=== PATIENT | female | born 2000 | race Hispanic/Latino ===

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

== ENCOUNTER 2022-04-01 17:28 | Emergency (ER) | payer OTHER ==
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
[2022-04-01 18:21] LABS: Absolute Lymphocytes (CBC) 1.3 K/uL (0.7-4.9); Hematocrit 33.4 % (36.0-45.0); Lymphocytes % 18.1 % (15.3-44.8); MCV 70.8 fL (80-100); MPV 6.7 fL (7.6-11.3); RBC Red Blood Cell Count 4.71 M/uL (3.86-4.86)
[2022-04-01 18:44] LABS: BUN Blood Urea Nitrogen 6 mg/dL (7-18); Bicarbonate 27 mmol/L (21-32); Glomerular Filtration Rate 127 ml/min (=/>90); Glucose Level 113 mg/dL (74-106); Magnesium 2.1 mg/dL (1.8-2.4); Potassium 3.8 mmol/L (3.5-5.1); Sodium Level 139 mmol/L (136-145); Thyroid Stimulating Hormone 0.808 uIU/mL (0.360-3.740)
[2022-04-01 18:59] LABS: Troponin High Sensitivity < 3.0 pg/mL (<58.9)
--- NOTE | 2022-04-01 19:27 | EDPHYS ---
Physician Documentation [facility] Name: Kathia Tenorio Age: 21 yrs Sex: Female : 2000 Arrival Date: 04/01/2022 Time: 17:29 Bed 7 Private MD: ED Physician Jeferson Lee HPI: 04/01 18:31 This 21 yrs old Female presents to ER via Ambulatory with complaints of jl9 Palpitations. Patient just started taking phentermine for weight loss. 37.5mg. . 18:31 Onset: The symptoms/episode began/occurred today. Associated signs and symptoms: The jl9 patient has no apparent associated signs or symptoms. The patient has not experienced similar symptoms in the past. 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 - Social history:: Smoking status: Patient denies any tobacco usage or history of. ROS: 18:32 Constitutional: Negative for fever, chills, and weight loss. jl9 18:32 Eyes: Negative for injury, pain, redness, and discharge, ENT: Negative for injury, pain, and discharge, Neck: Negative for injury, pain, and swelling. 18:32 Respiratory: Negative for shortness of breath, cough, wheezing, and pleuritic chest pain, Abdomen/GI: Negative for abdominal pain, nausea, vomiting, diarrhea, and constipation, Back: Negative for injury and pain, : Negative for injury, bleeding, discharge, and swelling, MS/Extremity: Negative for injury and deformity, Skin: Negative for injury, rash, and discoloration, Neuro: Negative for headache, weakness, numbness, tingling, and seizure, Psych: Negative for depression, anxiety, suicide ideation, homicidal ideation, and hallucinations, Allergy/Immunology: Negative for hives, rash, and allergies, Endocrine: Negative for neck swelling, polydipsia, polyuria, polyphagia, and marked weight changes, Hematologic/Lymphatic: Negative for swollen nodes, abnormal bleeding, and unusual bruising. 18:32 Cardiovascular: Positive for palpitations. Exam: 18:33 Constitutional: This is a well developed, well nourished patient who is awake, alert, jl9 and in no acute distress. Head/Face: Normocephalic, atraumatic. Eyes: Pupils equal round and reactive to light, extra-ocular motions intact. Lids and lashes normal. Conjunctiva and sclera are non-icteric and not injected. Cornea within normal limits. Periorbital areas with no swelling, redness, or edema. ENT: Mucous membranes moist. Neck: Trachea midline, no thyromegaly or masses palpated, and no cervical lymphadenopathy. Supple, full range of motion without nuchal rigidity, or vertebral point tenderness. No Meningismus. Chest/axilla: Normal chest wall appearance and motion. Nontender with no deformity. No lesions are appreciated. Cardiovascular: Regular rate and rhythm with a normal S1 and S2. No gallops, murmurs, or rubs. Normal PMI, no JVD. No pulse deficits. Respiratory: Lungs have equal breath sounds bilaterally, clear to auscultation and percussion. No rales, rhonchi or wheezes noted. No increased work of breathing, no retractions or nasal flaring. Abdomen/GI: Soft, non-tender, with normal bowel sounds. No distension or tympany. No guarding or rebound. No evidence of tenderness throughout. Back: No spinal tenderness. No costovertebral tenderness. Full range of motion. Skin: Warm, dry with normal turgor. Normal color with no rashes, no lesions, and no evidence of cellulitis. MS/ Extremity: Pulses equal, no cyanosis. Neurovascular intact. Full, normal range of motion. Neuro: Awake and alert, GCS 15, oriented to person, place, time, and situation. Cranial nerves II-XII grossly intact. Motor strength 5/5 in all extremities. Sensory grossly intact. Cerebellar exam normal. Normal gait. Psych: Awake, alert, with orientation to person, place and time. Behavior, mood, and affect are within normal limits. Vital Signs: 17:52 BP 132 / 87; Pulse 114; Resp 16; Temp 98.1; Pulse Ox 100% on R/A; Weight 55.34 kg; iw Height 4 ft. 11 in. (149.86 cm); 19:05 BP 104 / 70; Pulse 95; Resp 16; Pulse Ox 100% on R/A; hb 19:43 BP 104 / 70; Pulse 90; Resp 18; Pulse Ox 100% on R/A; ll3 17:52 Body Mass Index 24.64 (55.34 kg, 149.86 cm) iw MDM: 17:56 Patient medically screened. 18:33 Data reviewed: vital signs, nurses notes, lab test result(s), EKG. Test interpretation: jl9 by ED physician or midlevel provider: ECG, ST 103 bpm. 19:26 Counseling: I had a detailed discussion with the patient and/or guardian regarding: the [facility] historical points, exam findings, and any diagnostic results supporting the discharge/admit diagnosis, lab results, the need for outpatient follow up, to return to the emergency department if symptoms worsen or persist or if there are any questions or concerns that arise at home. 04/01 17:55 Order name: Basic Metabolic Panel; Complete Time: 19:02 04/01 17:55 Order name: CBC with Diff; Complete Time: 18:36 04/01 17:55 Order name: Magnesium; Complete Time: 19:02 04/01 17:55 Order name: Troponin HS; Complete Time: 19:02 04/01 17:55 Order name: XRAY Chest (1 view) 04/01 17:55 Order name: TSH; Complete Time: 19:02 04/01 17:55 Order name: EKG; Complete Time: 17:57 04/01 17:55 Order name: Cardiac monitoring; Complete Time: 18:14 04/01 17:55 Order name: EKG - Nurse/Tech; Complete Time: 18:14 04/01 17:55 Order name: IV Saline Lock; Complete Time: 18:14 04/01 17:55 Order name: Labs collected and sent; Complete Time: 18:14 Administered Medications: No medications were administered Disposition Summary: 04/01/22 19:27 Discharge Ordered Location: Home jl9 Condition: Stable jl9 Diagnosis - Palpitations jl9 Followup: jl9 - With: Private Physician - When: 1 - 2 days - Reason: Recheck today's complaints, Continuance of care, Re-evaluation by your physician Discharge Instructions: - Discharge Summary Sheet jl9 - Palpitations, [id number] jl9 Forms: - Medication Reconciliation Form jl9 - Thank You Letter jl9 - Antibiotic Education jl9 - Prescription Opioid Use jl9 Signatures: Dispatcher [employer] Monalisa Brown, WICHO RN Fabio Yang jl9 Corrections: (The following items were deleted from the chart) 17:55 17:54 Allergies: No Known Allergies; lucien mcgraw
--- NOTE | 2022-04-01 19:27 | ER ---
Nurse's Notes [facility] Name: Kathia Tenorio Age: 21 yrs Sex: Female : 2000 Arrival Date: 04/01/2022 Time: 17:29 Bed 7 Private MD: Diagnosis: Palpitations Presentation: 04/01 17:52 Chief complaint: Patient states: my heart rate has been fast and my BP was high, I iw thought it was anxiety but I thought I was going to faint , now my heart is just racing, it happened night also , I took a phentermine pill today , I usually take them and I never have problem, I stopped taking them on when it happened and then i took one today and it happened again. Coronavirus screen: At this time, the client does not indicate any symptoms associated with coronavirus-19. Ebola Screen: Patient negative for fever greater than or equal to 101.5 degrees Fahrenheit, and additional compatible Ebola Virus Disease symptoms Patient denies exposure to infectious person. Patient denies travel to an Ebola-affected area in the 21 days before illness onset. No symptoms or risks identified at this time. Initial Sepsis Screen: Does the patient meet any 2 criteria? No. Patient's initial sepsis screen is negative. Does the patient have a suspected source of infection? No. Patient's initial sepsis screen is negative. Risk Assessment: Do you want to hurt yourself or someone else? Patient reports no desire to harm self or others. Onset of symptoms was April 01, 2022. 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 - Social history:: Smoking status: Patient denies any tobacco usage or history of. Screenin:14 Abuse screen: Denies threats or abuse. Denies injuries from another. Nutritional hb screening: No deficits noted. Tuberculosis screening: No symptoms or risk factors identified. Fall Risk None identified. Assessment: 18:15 General: Appears in no apparent distress. Behavior is calm, cooperative. Pain: Denies hb pain. Neuro: Level of Consciousness is awake, alert, obeys commands, Oriented to person, place, time, situation. Cardiovascular: Reports palpitations, Patient's skin is warm and dry. Respiratory: Respiratory effort is even, unlabored, Respiratory pattern is regular, symmetrical. GI: No signs and/or symptoms were reported involving the gastrointestinal system. : No signs and/or symptoms were reported regarding the genitourinary system. EENT: No signs and/or symptoms were reported regarding the EENT system. Derm: Skin is pink, warm \T\ dry. Musculoskeletal: No signs and/or symptoms reported regarding the musculoskeletal system. 19:43 Reassessment: No changes from previously documented assessment. Patient and/or family ll3 updated on plan of care and expected duration. Pain level reassessed. Patient is alert, oriented x 3, equal unlabored respirations, skin warm/dry/pink. Vital Signs: 17:52 BP 132 / 87; Pulse 114; Resp 16; Temp 98.1; Pulse Ox 100% on R/A; Weight 55.34 kg; iw Height 4 ft. 11 in. (149.86 cm); 19:05 BP 104 / 70; Pulse 95; Resp 16; Pulse Ox 100% on R/A; hb 19:43 BP 104 / 70; Pulse 90; Resp 18; Pulse Ox 100% on R/A; ll3 17:52 Body Mass Index 24.64 (55.34 kg, 149.86 cm) iw ED Course: 17:29 Patient arrived in ED. as 17:54 Triage completed. iw 17:55 Fabio Hutchins is PHCP. jl9 17:55 Jeferson Lee MD is Attending Physician. jl9 17:55 Arm band placed on. iw 18:13 Inserted saline lock: 20 gauge in right antecubital area, using aseptic technique. zm Blood collected. 18:14 Patient has correct armband on for positive identification. Client placed on continuous hb cardiac and pulse oximetry monitoring. NIBP monitoring applied. 18:14 Basic Metabolic Panel Sent. zm 18:14 CBC with Diff Sent. zm 18:14 Magnesium Sent. zm 18:14 Troponin HS Sent. zm 18:14 TSH Sent. zm 18:14 Patient maintains SpO2 saturation greater than 95% on room air. hb 19:04 Karon Cobb, RN is Primary Nurse. hb 19:35 XRAY Chest (1 view) In Process Unspecified. EDMS 19:43 No provider procedures requiring assistance completed. IV discontinued, intact, ll3 bleeding controlled, No redness/swelling at site. Pressure dressing applied. Administered Medications: No medications were administered Medication: 18:15 VIS not applicable for this client. hb Outcome: 19:27 Discharge ordered by MD. weaver 19:43 Discharged to home ambulatory. ll3 19:43 Condition: stable 19:43 Discharge instructions given to patient, family, Instructed on discharge instructions, follow up and referral plans. Demonstrated understanding of instructions, follow-up care. 19:44 Patient left the ED. ll3 Signatures: Dispatcher [employer] EDMS Naya Meyer Irene RN WICHO Karon Cobb, RN RN Lalo Fontanez RN RN 3 Maricruz Meyer John jl9 Corrections: (The following items were deleted from the chart) 17:55 17:54 Allergies: No Known Allergies; [facility]
--- NOTE | 2022-04-01 19:47 | RAD REPORT ---
EXAM DESCRIPTION: Mary Single View04/01/2022 7:34 pm CLINICAL HISTORY: Hypertension COMPARISON: none FINDINGS: The lungs appear clear of acute infiltrate. The heart is normal size IMPRESSION: No acute abnormalities displayed
[2022-04-01 20:41] VITALS: TEMP 98.1; O2SAT 100
[2022-04-01 20:46] VITALS: BP 104/70
--- NOTE | 2022-04-02 13:45 | EKG ---
Test Date: 2022-04-01 Test Time: 18:06:11 Private Duty Lpn: HB MEASUREMENT RESULTS: Intervals: Rate: 103 ME: 134 QRSD: 78 QT: 332 QTc: 434 Doran: P: 72 ME: 134 QRS: 53 T: 26 INTERPRETIVE STATEMENTS: Sinus tachycardia Otherwise normal ECG No previous ECG available for comparison Electronically Signed On 04-02-22 13:43:38 CDT by Mark Lucia
== END 2022-04-01 19:44 | disposition home or self-care (01) ==
LOC: ER 17:28
DX: R00.2 Palpitations (principal); Z88.5 Allergy status to narcotic agent
CPT/HCPCS: 36415; 71045; 80048; 83735; 84443; 84484; 85025; 93005; 99284

== ENCOUNTER 2024-09-02 02:36 | Emergency (ER) | payer OTHER, SELFPAY ==
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
[2024-09-02 03:37] LABS: Absolute Basophils 0.1 K/uL (0-0.5); Absolute Lymphocytes (CBC) 1.1 K/uL (0.7-4.9); Absolute Monocytes 0.3 K/uL (0.1-1.3); Absolute Neutrophil 4.6 K/uL (1.8-8.0); Basophils % 1.3 % (0-1.3); Eosinophils % 0.5 % (0-4.4); Hematocrit 45.8 % (36.0-45.0); Lymphocytes % 17.3 % (15.3-44.8); MCH 32.8 pg (27.0-35.0); MCHC 34.9 g/dL (32.0-36.0); MCV 94.1 fL (80-100); MPV 6.9 fL (7.6-11.3); Monocytes % 5.1 % (3.3-12.3); Neutrophils % 75.8 % (41.7-73.7); Nucleated Red Blood Cells % 0.1 % (0-0); Platelets 371 thou/uL (152-406); RBC Red Blood Cell Count 4.87 M/uL (3.86-4.86); Red Cell Distribution Width 13.4 % (12.1-15.2)
[2024-09-02] MEDS ORDERED: ONDANSETRON 4 MG/2 ML VIAL ONE (03:37)
[2024-09-02] MEDS ORDERED: KETOROLAC 30 MG/ML INJ ONE (03:37)
[2024-09-02] MEDS ORDERED: METOCLOPRAMIDE 10 MG/2mL INJ ONE (03:37)
[2024-09-02] MEDS ORDERED: FAMOTIDINE 20 MG/2 ML VIAL IV ONE (03:38)
[2024-09-02] MEDS ORDERED: FENTANYL CITR 100 MCG/2 ML ONE (03:38)
[2024-09-02] MEDS ORDERED: NA CHLORIDE 0.9% 1,000 ML ONE (03:39)
[2024-09-02 03:47] LABS: AST/SGOT 13 U/L (15-37); Albumin/Globulin Ratio 1.1 (1.1-1.8); Alkaline Phosphatase 52 U/L (45-117); Anion Gap 8.8 mEq/L (5.0-15.0); BUN Blood Urea Nitrogen 6 mg/dL (7-18); Bicarbonate 26 mEq/L (21-32); Bilirubin Total 0.5 mg/dL (0.2-1.0); Globulin 3.7 g/dL (2.3-3.5); Glomerular Filtration Rate 128 ml/min (=/>90); Glucose Level 110 mg/dL (74-106); Lipase 21 U/L (13-75); Potassium 3.8 mEq/L (3.5-5.1); Protein, Total 7.7 g/dL (6.4-8.2); Sodium Level 135 mEq/L (136-145); Specific Gravity 1.023 (1.005-1.030); Urine Bacteria None Seen /HPF (<20); Urine Bilirubin NEGATIVE (Negative); Urine Blood 1+ (Negative); Urine Clarity Turbid (Clear); Urine Color Yellow (Yellow); Urine Culture Reflex Order NOT NEEDED; Urine Glucose NEGATIVE (Negative); Urine Ketones 1+ (Negative); Urine Microscopic Reflex YN ORDER UMIC; Urine Mucus Slight /HPF (None Seen); Urine Nitrite NEGATIVE (Negative); Urine Protein TRACE (Negative); Urine Urobilinogen 1+ (Normal); Urine WBC <5 /HPF (<5); Urine pH 7.5 (5.0-7.0)
[2024-09-02 03:53] LABS: ALT/SGPT < 14 U/L (13-56)
--- NOTE | 2024-09-02 04:31 | RAD REPORT ---
EXAM DESCRIPTION: Renal Ultrasound-Complete CLINICAL HISTORY: back pain COMPARISON: None. TECHNIQUE: Real-time sonographic images of the retroperitoneum were obtained using a curved multihert z transducer. FINDINGS: The visualized portions of the aorta and IVC are unremarkable. The right kidney measures 9.9 cm in length. The left kidney measures 9.6 cm in length. No solid renal mass, shadowing renal calculi, or hydronephrosis. The urinary bladder is well-distended. IMPRESSION: No acute sonographic abnormality identified in the kidneys. Electronically signed by: Valerio Simms DO 09/02/2024 04:26 AM [facility] 4ZDM Due to temporary technical issues with the PACS/[employer] reporting system, reports are being signed by the in-house radiologist without review as a courtesy to ensure prompt reporting the interpreting radiologist is fully responsible for the content of the report. Transcribed Date/Time: 09/02/2024 4:31 AM
--- NOTE | 2024-09-02 04:34 | ER ---
Nurse's Notes [facility] Name: Kathia Tenorio Age: 24 yrs Sex: Female : 2000 Arrival Date: 09/02/2024 Time: 02:36 Bed 6 Private MD: Diagnosis: Acute Upper Abdominal pain , Epigastric pain, Bilateral upper Back pain Presentation: 09/02 02:50 Chief complaint: Patient states: Low back pain that radiates to right side. Coronavirus vc1 screen: Client denies travel out of the [place] in the last 14 days. At this time, the client does not indicate any symptoms associated with coronavirus-19. Ebola Screen: Patient negative for fever greater than or equal to 101.5 degrees Fahrenheit, and additional compatible Ebola Virus Disease symptoms Patient denies exposure to infectious person. Patient denies travel to an Ebola-affected area in the 21 days before illness onset. No symptoms or risks identified at this time. Initial Sepsis Screen: Does the patient meet any 2 criteria? No. Patient's initial sepsis screen is negative. Does the patient have a suspected source of infection? No. Patient's initial sepsis screen is negative. Risk Assessment: Do you want to hurt yourself or someone else? Patient reports no desire to harm self or others. Onset of symptoms was September 01, 2024 at 12:30. Care prior to arrival: Medication(s) given: Motrin, motrin at 1230 and 1700. Activity prior to arrival: None. Mechanism of Injury: No Mechanism of Injury. Transition of care: patient was not received from another setting of care. 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 Flu vaccine is not up to date. - Infectious Disease History:: Denies. - Social history:: Smoking status: Reported history of juuling and/or vaping. - Family history:: not pertinent. Screenin:50 [facility] ED Fall Risk Assessment (Adult) History of falling in the last 3 months, dd2 including since admission No falls in past 3 months (0 pts) Confusion or Disorientation No (0 pts) Intoxicated or Sedated No (0 pts) Impaired Gait No (0 pts) Mobility Assist Device Used No (0 pt) Altered Elimination No (0 pt) Score/Fall Risk Level 0 - 2 = Low Risk Oriented to surroundings, Maintained a safe environment, Educated pt \T\ family on fall prevention, incl call for assistance when getting out of bed, Assessed \T\ reinforced patient's understanding of fall precautions, Hourly rounding (assess needs \T\ fall precautionary measures) done. Abuse screen: Denies threats or abuse. Nutritional screening: No deficits noted. Tuberculosis screening: No symptoms or risk factors identified. 02:53 [facility] ED Fall Risk Assessment (Adult) History of falling in the last 3 months, vc1 including since admission No falls in past 3 months (0 pts) Confusion or Disorientation No (0 pts) Intoxicated or Sedated No (0 pts) Impaired Gait No (0 pts) Mobility Assist Device Used No (0 pt) Altered Elimination No (0 pt) Score/Fall Risk Level 0 - 2 = Low Risk Oriented to surroundings, Maintained a safe environment, Educated pt \T\ family on fall prevention, incl call for assistance when getting out of bed. Abuse screen: Denies threats or abuse. Nutritional screening: No deficits noted. Tuberculosis screening: No symptoms or risk factors identified. Assessment: 02:50 General: Appears in no apparent distress. uncomfortable, Behavior is calm, cooperative, dd2 appropriate for age. Pain: Complains of pain in right low back and posterior aspect of right lateral abdomen Pain does not radiate. Pain currently is 5 out of 10 on a pain scale. Neuro: Johnson Agitation-Sedation Scale (RASS): 0 - Alert and Calm Level of Consciousness is awake, alert, obeys commands, Oriented to person, place, time, situation, Appropriate for age. Cardiovascular: Patient's skin is warm and dry. Respiratory: No deficits noted. Airway is patent Respiratory effort is even, unlabored, Respiratory pattern is regular, symmetrical, Breath sounds are clear bilaterally. GI: Bowel sounds present X 4 quads. Abd is soft and non tender X 4 quads. : Reports pain in right flank(s), in lower back. :. EENT: No deficits noted. No signs and/or symptoms were reported regarding the EENT system. Derm: No deficits noted. No signs and/or symptoms reported regarding the dermatologic system. Musculoskeletal: Circulation, motion, and sensation intact. Range of motion: intact in all extremities. Vital Signs: 02:50 BP 132 / 95; Pulse 76; Resp 14; Temp 97.9; Pulse Ox 100% ; Weight 54.43 kg; Height 4 vc1 ft. 11 in. ; Pain 5/10; 04:48 BP 93 / 77; Pulse 72; Resp 16; Pulse Ox 100% on R/A; dd2 02:50 Body Mass Index 24.24 (54.43 kg, 149.86 cm) vc1 02:50 Pain Scale: Adult vc1 [place] Coma Score: 02:50 Eye Response: spontaneous(4). Motor Response: obeys commands(6). Verbal Response: dd2 oriented(5). Total: 15. 21:04 Eye Response: spontaneous(4). Motor Response: obeys commands(6). Verbal Response: sp4 oriented(5). Total: 15. ED Course: 02:41 Patient arrived in ED. gm2 02:50 CHRISTIE PIERRE, RN is Primary Nurse. dd2 02:50 Patient has correct armband on for positive identification. Bed in low position. Call dd2 light in reach. Side rails up X 1. Client placed on continuous cardiac and pulse oximetry monitoring. NIBP monitoring applied. Door closed. Noise minimized. Pillow given. Verbal reassurance given. 02:50 No provider procedures requiring assistance completed. Patient maintains SpO2 dd2 saturation greater than 95% on room air. 02:52 Triage completed. vc1 02:54 Eduardo Resendez MD is Attending Physician. sp4 02:54 Arm band placed on right wrist. vc1 03:15 Initial lab(s) drawn, by me, sent to lab. Urine collected: clean catch specimen, dd2 cloudy. Inserted saline lock: 20 gauge in right antecubital area, using aseptic technique. Blood collected. Flushed with 10 mL NS. 03:17 Urinalysis w/ reflexes Sent. dd2 03:17 Test, Urine Sent. dd2 03:17 Lipase Sent. dd2 03:17 CMP Sent. dd2 03:17 CBC with Diff Sent. dd2 03:38 US Abdomen Limited In Process Unspecified. EDMS 03:38 US Pelvis Complete In Process Unspecified. EDMS 03:38 Renal Ultrasound-Complete In Process Unspecified. EDMS 04:09 Abdomen Acute Series XRAY In Process Unspecified. EDMS 04:47 Provided Education on: d/c education. dd2 04:47 IV discontinued, intact, bleeding controlled, No redness/swelling at site. Pressure dd2 dressing applied. Administered Medications: 03:58 Drug: metoCLOPramide IVP 10 mg IVP once; over 1 to 2 minutes Route: IVP; Site: right ay antecubital; 04:17 Follow up: Response: No adverse reaction ay 03:59 Drug: Famotidine IVP 20 mg IVP once; dilute with 10 mL 0.9% NaCl; give over 2 minutes ay Route: IVP; Site: right antecubital; 04:18 Follow up: Response: No adverse reaction ay 03:59 Drug: Ondansetron IVP 4 mg IVP once; over 2 minutes Route: IVP; Site: right antecubital;ay 04:19 Follow up: Response: No adverse reaction ay 03:59 Drug: NS 0.9% IV 1000 ml IV at 1 bolus Per protocol; to be given as a bolus over 60 ay minutes Route: IV; Rate: 1 bolus; Site: right antecubital; 04:19 Follow up: Response: No adverse reaction ay 04:47 Follow up: IV Status: Completed infusion; IV Intake: 1000ml dd2 03:59 Drug: fentaNYL (PF) IVP 100 mcg IVP once Route: IVP; Site: right antecubital; ay 04:18 Follow up: Response: No adverse reaction ay 04:00 Drug: TORadol - Ketorolac IVP 30 mg IVP once Route: IVP; Site: right antecubital; ay 04:19 Follow up: Response: No adverse reaction ay Medication: 02:50 VIS not applicable for this client. dd2 Intake: 04:47 IV: 1000ml; Total: 1000ml. dd2 Outcome: 04:34 Discharge ordered by . sp4 04:47 Discharged to home ambulatory, dd2 04:47 Condition: improved 04:47 Discharge instructions given to patient, Instructed on discharge instructions, follow up and referral plans. medication usage, Demonstrated understanding of instructions, follow-up care, medications, Prescriptions given X 3, 04:49 Patient left the ED. dd2 Signatures: Dispatcher [employer] EDMS Blank Hansen RN RN vc1 Eduardo Resendez MD MD sp4 Sunitha Bapitste gm2 CHRISTIE PIERRE RN RN dd2 Elisabet Neri RN RN ay
--- NOTE | 2024-09-02 04:34 | EDPHYS ---
Physician Documentation [facility] Name: Kathia Tenorio Age: 24 yrs Sex: Female : 2000 Arrival Date: 09/02/2024 Time: 02:36 Bed 6 Private MD: ED Physician Eduardo Resendez HPI: 09/02 02:54 This 24 yrs old Female presents to ER via Ambulatory with complaints of sp4 Abdominal Pain, Back Pain. 21:04 24-year-old female presents with complaint of abdominal and back pain mostly epigastric sp4 upper abdominal location.. Patient reported associated nausea.. 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 Flu vaccine is not up to date. - Infectious Disease History:: Denies. - Social history:: Smoking status: Reported history of juuling and/or vaping. - Family history:: not pertinent. ROS: 21:04 Constitutional: Negative for fever, chills, and weight loss, positive for abdominal sp4 pain back pain and nausea. 21:04 All other systems are negative, Exam: 21:04 Constitutional: This is a well developed, well nourished patient who is awake, alert, sp4 and in no acute distress. Head/Face: Normocephalic, atraumatic. Eyes: Pupils equal round and reactive to light, extra-ocular motions intact. Lids and lashes normal. Conjunctiva and sclera are not injected. Cornea within normal limits. Periorbital areas with no swelling, redness, or edema. ENT: Nares patent. No nasal discharge, no septal abnormalities noted. Tympanic membranes are normal and external auditory canals are clear. Oropharynx with no redness, swelling, or masses, exudates, or evidence of obstruction, uvula midline. Mucous membranes moist. Neck: Trachea midline, no thyromegaly or masses palpated, and no cervical lymphadenopathy. Supple, full range of motion without nuchal rigidity, or vertebral point tenderness. Chest/axilla: Normal chest wall appearance and motion. Nontender with no deformity. No lesions are appreciated. Cardiovascular: Regular rate and rhythm with a normal S1 and S2. No gallops, murmurs, or rubs. Normal PMI, no JVD. No pulse deficits. Respiratory: Lungs have equal breath sounds bilaterally, clear to auscultation and percussion. No rales, rhonchi or wheezes noted. No increased work of breathing, no retractions or nasal flaring. Abdomen/GI: Soft, with normal bowel sounds. No distension or tympany. No guarding , negative rebound, positive upper abdominal tenderness bilaterally. Back: No spinal tenderness. No costovertebral tenderness. Skin: Warm, dry with normal turgor. Normal color with no rashes, no lesions, and no evidence of cellulitis. MS/ Extremity: Pulses equal, no cyanosis. Neurovascular intact. Full, normal range of motion. Neuro: Awake and alert, GCS 15, oriented to person, place, time, and situation. Cranial nerves II-XII grossly intact. Motor strength 5/5 in all extremities. Sensory grossly intact. Psych: Awake, alert, with orientation to person, place and time. Behavior, mood, and affect are within normal limits Vital Signs: 02:50 BP 132 / 95; Pulse 76; Resp 14; Temp 97.9; Pulse Ox 100% ; Weight 54.43 kg; Height 4 vc1 ft. 11 in. ; Pain 5/10; 04:48 BP 93 / 77; Pulse 72; Resp 16; Pulse Ox 100% on R/A; dd2 02:50 Body Mass Index 24.24 (54.43 kg, 149.86 cm) vc1 02:50 Pain Scale: Adult vc1 [place] Coma Score: 02:50 Eye Response: spontaneous(4). Motor Response: obeys commands(6). Verbal Response: dd2 oriented(5). Total: 15. 21:04 Eye Response: spontaneous(4). Motor Response: obeys commands(6). Verbal Response: sp4 oriented(5). Total: 15. MDM: 03:02 Medical Screening Exam initiated sp4 04:32 ED course: EXAM DESCRIPTION: Renal Ultrasound-Complete CLINICAL HISTORY: back pain sp4 COMPARISON: None. TECHNIQUE: Real-time sonographic images of the retroperitoneum were obtained using a curved multihertz transducer. FINDINGS: The visualized portions of the aorta and IVC are unremarkable. The right kidney measures 9.9 cm in length. The left kidney measures 9.6 cm in length. No solid renal mass, shadowing renal calculi, or hydronephrosis. The urinary bladder is well-distended. IMPRESSION: No acute sonographic abnormality identified in the kidneys. Electronically signed by: Valerio Simms DO 09/02/2024 04:26 AM. ED course: EXAM: XR Abdomen, 2 Views and XR Chest, 1 View CLINICAL HISTORY: The patient is 24 years old and is Female; Abdomen pain. TECHNIQUE: Three views total including of the chest, frontal view of the abdomen/pelvis and upright or decubitus view of the abdomen. COMPARISON: US Abdomen limited 09/02/2024. FINDINGS: Lungs: No pulmonary vascular congestion or consolidation. Pleural space: Unremarkable. No pneumothorax. Heart: Unremarkable. No cardiomegaly. Mediastinum: Unremarkable. Intraperitoneal space: No free air. Gastrointestinal tract: No dilated bowel loops. No bowel wall thickening. Bones/joints: No acute fracture visualized. Other findings: IUD. IMPRESSION: No acute findings in the chest, abdomen or pelvis. Electronically signed by: Mariza Willson MD 09/02/2024 04:30 AM. 21:04 Differential diagnosis: Fatigue Hydronephrosis Peptic Ulcer Pyelonephritis. sp4 Data reviewed: vital signs, nurses notes, radiologic studies, plain films, ultrasound. Consideration of Admission/Observation Escalation of care including admission/observation considered. 21:08 ED course: EXAM: Abdomen Exam Limited US Abdomen Limited US Right Upper Abdomen sp4 HISTORY: Abdominal pain COMPARISON: Abdomen 2 views 09/02/2024 at 3:59 AM TECHNIQUE: Grayscale, color Doppler, and duplex Doppler images of right upper abdomen. FINDINGS: No significant free fluid. Liver parenchyma grossly unremarkable. Common bile duct measuring 3 mm diameter and within normal limits. No intra or extrahepatic biliary ductal dilatation. Gallbladder unremarkable without evidence of stones or inflammation. Negative sonographic Mills sign. IMPRESSION: Unremarkable US right upper abdomen. ED course: EXAM: US Pelvis Transabdominal, Complete and US DuplexArterial/Venous of the Pelvis, Complete CLINICAL HISTORY: The patient is 24 years old and is Female; right lower quadrant pain. LMP August 31, 2024. TECHNIQUE: Real-time complete transabdominal pelvic ultrasound with image documentation. Real-time duplex ultrasound scan of the arterial and venous flow of the pelvis with color Doppler flow and spectral waveform analysis. COMPARISON: No relevant prior studies available. FINDINGS: Uterus/cervix: Uterus is 5.9 x 3.6 x 5.2 cm. Endometrial stripe 3.8 mm in thickness. IUD in place. No myometrial mass. Right ovary: Right ovary 3.2 x 2.4 x 2.6 cm. Right ovarian follicles are visualized. No torsion. Left ovary: Left ovary sought but not visualized. Free fluid: No free fluid. Bladder: Unremarkable as visualized. Wall is normal thickness for degree of distention. IMPRESSION: 1. No right ovarian torsion. 2. Left ovary not visualized. Electronically signed by: Mariza Willson MD 09/02/2024 05:21. 21:10 ED course: Pain has improved. Patient has no sign of emergent renal or upper abdominal sp4 problem based on ultrasounds. Stable for discharge home with return to ER precautions. 09/02 03:00 Order name: CBC with Diff; Complete Time: 04:28 sp4 09/02 03:00 Order name: CMP; Complete Time: 04:28 sp4 09/02 03:00 Order name: Lipase; Complete Time: 04:28 sp4 09/02 03:00 Order name: Test, Urine; Complete Time: 04:28 sp4 09/02 03:00 Order name: Urinalysis w/ reflexes; Complete Time: 04:28 sp4 09/02 02:59 Order name: US Abdomen Limited sp4 09/02 02:59 Order name: US Pelvis Complete sp4 09/02 03:05 Order name: Renal Ultrasound-Complete EDAR 09/02 03:35 Order name: Abdomen Acute Series XRAY sp4 09/02 03:00 Order name: IV Saline Lock; Complete Time: 03:15 sp4 09/02 03:00 Order name: Labs collected and sent; Complete Time: 03:15 sp4 Administered Medications: 03:58 Drug: metoCLOPramide IVP 10 mg IVP once; over 1 to 2 minutes Route: IVP; Site: right ay antecubital; 04:17 Follow up: Response: No adverse reaction ay 03:59 Drug: Famotidine IVP 20 mg IVP once; dilute with 10 mL 0.9% NaCl; give over 2 minutes ay Route: IVP; Site: right antecubital; 04:18 Follow up: Response: No adverse reaction ay 03:59 Drug: Ondansetron IVP 4 mg IVP once; over 2 minutes Route: IVP; Site: right antecubital;ay 04:19 Follow up: Response: No adverse reaction ay 03:59 Drug: NS 0.9% IV 1000 ml IV at 1 bolus Per protocol; to be given as a bolus over 60 ay minutes Route: IV; Rate: 1 bolus; Site: right antecubital; 04:19 Follow up: Response: No adverse reaction ay 04:47 Follow up: IV Status: Completed infusion; IV Intake: 1000ml dd2 03:59 Drug: fentaNYL (PF) IVP 100 mcg IVP once Route: IVP; Site: right antecubital; ay 04:18 Follow up: Response: No adverse reaction ay 04:00 Drug: TORadol - Ketorolac IVP 30 mg IVP once Route: IVP; Site: right antecubital; ay 04:19 Follow up: Response: No adverse reaction ay Disposition Summary: 09/02/24 04:34 Discharge Ordered Notes: Location: Home sp4 Problem: new sp4 Symptoms: have improved sp4 Condition: Stable sp4 Diagnosis - Acute Upper Abdominal pain , Epigastric pain, Bilateral upper Back pain sp4 Followup: sp4 - With: Private Physician - When: 7 - 10 days - Reason: Recheck today's complaints Discharge Instructions: - Discharge Summary Sheet sp4 - Clear Liquid Diet, Adult, [id number] sp4 Forms: - Patient Portal Instructions sp4 Prescriptions: - ondansetron 8 mg Oral Tablet,disintegrating - take 1 tablet ORAL route every 8 hours for 4 days PRN nausea; 30 tablet; sp4 Refills: 0, Product Selection Permitted - Ibuprofen 800 mg Oral Tablet - take 1 tablet ORAL route every 8 hours As needed take with food; 30 tablet; sp4 Refills: 0, Product Selection Permitted - dicyclomine 20 mg Oral tablet - take 2 tablets ORAL route every 8 hours PRN abdominal cramps; 30 tablet; sp4 Refills: 0, Product Selection Permitted Signatures: Dispatcher [employer] Blank Hurley RN RN vc1 Eduardo Resendez MD MD sp4 Yakubu, Awudu, RN RN ay IGNACIO, CHRISTIE RN dd2
[2024-09-02 05:04] VITALS: TEMP 97.9; O2SAT 100
[2024-09-02 05:09] VITALS: BP 93/77
--- NOTE | 2024-09-02 05:15 | RAD REPORT ---
EXAM: Abdomen Exam Limited US Abdomen Limited US Right Upper Abdomen HISTORY: Abdominal pain COMPARISON: Abdomen 2 views 09/02/2024 at 3:59 AM TECHNIQUE: Grayscale, color Doppler, and duplex Doppler images of right upper abdomen. FINDINGS: No significant free fluid. Liver parenchyma grossly unremarkable. Common bile duct measuring 3 mm diameter and within normal limits. No intra or extrahepatic biliary ductal dilatation. Gallbladder unremarkable without evidence of stones or inflammation. Negative sonographic Mills sign. IMPRESSION: Unremarkable US right upper abdomen Electronically signed by: Evans Tovar MD 09/02/2024 04:56 AM [facility] Due to temporary technical issues with the PACS/[employer] scribe reporting system, reports are being signed by the in-house radiologist without review as a courtesy to ensure prompt reporting the interpreting radiologist is fully responsible for the content of the report. Transcribed Date/Time: 09/02/2024 5:15 AM
--- NOTE | 2024-09-02 05:39 | RAD REPORT ---
EXAM: US Pelvis Transabdominal, Complete and US Duplex Arterial/Venous of the Pelvis, Complete CLINICAL HISTORY: The patient is 24 years old and is Female; right lower quadrant pain. LMP August 31, 2024. TECHNIQUE: Real-time complete transabdominal pelvic ultrasound with image documentation. Real-ti me duplex ultrasound scan of the arterial and venous flow of the pelvis with color Doppler flow and spectral waveform analysis. COMPARISON: No relevant prior studies available. FINDINGS: Uterus/cervix: Uterus is 5.9 x 3.6 x 5.2 cm. Endometrial stripe 3.8 mm in thickness. IUD in place. No myometrial mass. Right ovary: Right ovary 3.2 x 2.4 x 2.6 cm. Right ovarian follicles are visualized. No torsion. Left ovary: Left ovary sought but not visualized. Free fluid: No free fluid. Bladder: Unremarkable as visualized. Wall is normal thickness for degree of distention. IMPRESSION: 1. No right ovarian torsion. 2. Left ovary not visualized. Electronically signed by: Mariza Willson MD 09/02/2024 05:21 AM [facility] [place] Due to temporary technical issues with the PACS/[employer] reporting system, reports are being signed by the in-house radiologist without review as a courtesy to ensure prompt reporting the interpreting radiologist is fully responsible for the content of the report. Transcribed Date/Time: 09/02/2024 5:39 AM
--- NOTE | 2024-09-02 06:21 | RAD REPORT ---
EXAM: XR Abdomen, 2 Views and XR Chest, 1 View CLINICAL HISTORY: The patient is 24 years old and is Female; Abdomen pain. TECHNIQUE: Three views total including of the chest, frontal view of the abdomen/pelvis and upright or decubitus view of the abdomen. COMPARISON: US Abdomen limited 09/02/2024. FINDINGS: Lungs: No pulmonary vascular congestion or consolidation. Pleural space: Unremarkable. No pneumothorax. Heart: Unremarkable. No cardiomegaly. Mediastinum: Unremarkable. Intraperitoneal space: No free air. Gastrointestinal tract: No dilated bowel loops. No bowel wall thickening. Bones/joints: No acute fracture visualized. Other findings: IUD. IMPRESSION: No acute findings in the chest, abdomen or pelvis. Electronically signed by: Mariza Willson MD 09/02/2024 04:[address] [facility] [place] Due to temporary technical issues with the PACS/[employer] reporting system, reports are being scott d by the in-house radiologist without review as a courtesy to ensure prompt reporting the interpreting radiologist is fully responsible for the content of the report. Transcribed Date/Time: 09/02/2024 6:21 AM
== END 2024-09-02 04:49 | disposition home or self-care (01) ==
LOC: ER 02:36
DX: R10.13 Epigastric pain (principal); M54.9 Dorsalgia, unspecified
CPT/HCPCS: 36415; 74022; 76705; 76770; 76856; 80053; 81001; 81025; 83690; 85025; 96361; 96374; 96375; 99284; J2405; J2765; J3010; J7030